=== PATIENT | male | born 2005 | race Caucasian/White ===

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

== ENCOUNTER 2023-04-13 12:17 | Emergency (ER) | payer BC, SELFPAY ==
[2023-04-13 12:19] VITALS: BP 141/100; PULSE 84; RESP 16; TEMP 36.1; O2SAT 99; BMI 26.4
--- NOTE | 2023-04-13 12:42 | EX.ED.DYSGE1 ---
HPI History of Present Illness Chief Complaint: Allergic Reaction Informant: patient Onset/Context/Timing Onset: Days (3 days) Narrative Narrative: Patient presents secondary to hives and allergic reaction. He states he woke Wednesday morning with hives primarily on his thighs. They have progressed and now cover his extremities, trunk, and onto his neck. No lesions noted on his face. He was staying with his girlfriend in [place] at the time of onset. He denies any new medications, foods, soaps, detergents. He was seen at an urgent care in [place] and given a dose of Decadron. He states he had no significant improvement with this. He went to an urgent care here locally today who wrote him a prescription for prednisone. He went to pick it up at the pharmacy but was told to be several hours until is ready so he presents to the emergency room. His last dose of Benadryl was last evening. He denies throat tightness, wheezing, shortness of breath. PFSH PFSH Medical History no medical history no medical history Home Medications NK 04/13/23 [History Last Taken Unknown] Allergy/AdvReac Type Severity Reaction Status Date / Time No Known Allergies Allergy Verified 04/13/23 12:19 Social History Smoking Status: Never smoker ROS ROS ED Constitutional Constitutional ED: Denies chills or fever(s) Eyes Eyes: Denies discharge from eye(s) ENT ENT ED: Denies discharge from eye(s), rhinorrhea or sore throat Cardiovascular Cardiovascular: Denies chest pain or palpitations Respiratory/Chest Respiratory/Chest: Denies cough or dyspnea Gastrointestinal Gastrointestinal: Denies abdominal pain, nausea or vomiting Musculoskeletal Musculoskeletal: Denies back pain or extremity pain Integumentary Reports rash; Denies Abrasions Neurologic Neurologic: Denies headache(s) or weakness Psychiatric Psychiatric: Denies anxiety or depression Allergic/Immunologic Allergic/Immunologic ED: Denies lip swelling or urticaria EXAM Physical Exam Const Vital Signs: 04/13/23 12:19 Temperature 96.9 F L Temperature Source Temporal Pulse Rate 84 Respiratory Rate 16 Blood Pressure 141/100 H Blood Pressure Mean 113 Pulse Ox 99 Positive well nourished and well developed General Appearance ED: well developed HEENT Reports moist mucous membranes Eyes EOMs intact bilaterally Chest Wall inspection of chest normal and palpation of chest normal Resp normal respiratory effort and clear to auscultation bilaterally Cardio regular rate and regular rhythm GI non-tender Palpation: soft Neuro oriented x3 and no sensory deficits noted Motor Exam: strength 5/5 throughout Psych mental status grossly normal Skin Skin Narrative: Urticarial lesions noted diffusely over the trunk and extremities. No vesicles. No sign of secondary bacterial infection. MDM MDM MDM Narrative Medical decision making narrative: Patient is given p.o. prednisone and Pepcid here. He did drive himself and does not have a ride home so Benadryl would not be given at this time. At this time patient's welts are improving. He does still have some erythema but it is improving. Prednisone has already been sent to the pharmacy for him. We discussed taking Benadryl and Pepcid in addition to this. He is comfortable with the plan. Discharge Plan Triage Chief Complaint: Allergic Reaction ED Provider: Ines Tidwell Dx/Rx/DC Orders Clinical Impression: Urticaria Instructions: ED Hives (Adult) Prescriptions: No Action NK Primary Care Provider: Rene Stokes Referrals: Rene Stokes MD [Primary Care Provider] - Activity Restrictions/Additional Instructions: In addition to the prescribed prednisone, you can take Benadryl 3 times a day. You can take Pepcid, 20 mg twice a day or 40 mg once a day. You can take another dose of Pepcid this evening. Disposition Disposition: Home, Self Care
[2023-04-13] MEDS: predniSONE 20 MG Tablet 60 MG PO (13:06)
[2023-04-13] MEDS: Famotidine 20 MG Tablet 40 MG PO (13:06)
== END 2023-04-13 14:03 | disposition home or self-care (01) ==
PROVIDERS: Emergency Provider Emergency Medicine; PCP Family Medicine; Visit Provider Emergency Medicine
DX: L50.9 Urticaria, unspecified (principal)
CPT/HCPCS: 99283

== ENCOUNTER → 2023-04-14 | Outpatient (CLI) | payer BC, SELFPAY ==
[2023-04-19 00:07] LABS: Alternaria tenuis <0.10 kU/L (Class 0); Ash, White 0.17 kU/L (Class 0/I); Aspergillus fumigatus <0.10 kU/L (Class 0); Bermuda Grass 0.17 kU/L (Class 0/I); Birch 1.29 kU/L (Class II); Black Walnut 1.72 kU/L (Class III); Cat Hair / Dander,Stand 0.17 kU/L (Class 0/I); Cedar, Mountain 0.16 kU/L (Class 0/I); Cladosporium herbarum <0.10 kU/L (Class 0); Cockroach, American 0.13 kU/L (Class 0/I); Cottonwood 0.16 kU/L (Class 0/I); D farinae Mite 7.28 kU/L (Class IV); Dog Epithelia <0.10 kU/L (Class 0); Immunoglobulin E 98 IU/mL (6-495); Mouse Urine <0.10 kU/L (Class 0); Oak, White 1.77 kU/L (Class III); Pecan 2.14 kU/L (Class III); Penicillium Notatum <0.10 kU/L (Class 0); Pigweed, Rough 0.13 kU/L (Class 0/I); Ragweed, Short/Common 0.19 kU/L (Class 0/I); Russian Thistle 0.45 kU/L (Class I); Sheep Sorrel 0.14 kU/L (Class 0/I); Sycamore, American 0.18 kU/L (Class 0/I); Timothy Grass 0.25 kU/L (Class 0/I)
== END | disposition home or self-care (01) ==
LOC: MFPLAB 16:31
PROVIDERS: PCP Family Medicine; Visit Provider Family Medicine
DX: T78.40XA Allergy, unspecified, initial encounter (principal); X58.XXXA Exposure to other specified factors, initial encounter
CPT/HCPCS: 36415; 82785; 86003

== ENCOUNTER 2023-04-16 01:18 | Emergency (ER) | payer BC, SELFPAY ==
[2023-04-16 01:20] VITALS: BP 119/106; PULSE 75; RESP 18; TEMP 36.8; O2SAT 100; BMI 26.6
--- NOTE | 2023-04-16 02:36 | ED.RN ---
PT RANG OUT, STATES HE WAS TIRED OF WAITING AND ASKED IF HE COULD LEAVE, INFORMED PT IT WAS HIS CHOICE, HE AMBULATES OUT OF DEPARTMENT WITHOUT DIFFICULTY.
== END 2023-04-16 02:25 | disposition left against medical advice (07) ==
PROVIDERS: PCP Family Medicine
DX: Z53.21 Procedure and treatment not carried out due to patient leaving prior to being seen by health care provider (principal)
CPT/HCPCS: 99281